=== PATIENT | female | born 1955 | race Caucasian/White ===

== ENCOUNTER → 2017-06-20 | Outpatient (CLI) | payer MEDICARE, OTHER ==
--- NOTE | 2017-06-22 09:48 | MM ---
Reason for exam: screening (asymptomatic). Last mammogram was performed 1 year and 3 months ago. Physical Findings: A clinical breast exam by your physician is recommended on an annual basis and results should be correlated with mammographic findings. MG 3D Screening Mammo W/Cad Bilateral CC and MLO view(s) were taken. Prior study comparison: March 10, 2016, bilateral MG 3d screening mammo w/cad. November 12, 2010, bilateral digital screening mammo w/CAD. There are scattered fibroglandular densities. Scattered calcifications are unchanged. No significant changes when compared with prior studies. ASSESSMENT: Negative, BI-RAD 1 RECOMMENDATION: Routine screening mammogram of both breasts in 1 year.
== END | disposition home or self-care (01) ==
LOC: RADMAMWWP 08:37
PROVIDERS: ATTEND Family Medicine
DX: Z12.31 Encounter for screening mammogram for malignant neoplasm of breast (principal)
CPT/HCPCS: 77063; G0202

== ENCOUNTER → 2018-07-31 | Outpatient (CLI) | payer MEDICARE, OTHER ==
--- NOTE | 2018-08-01 11:17 | MM ---
Reason for exam: screening (asymptomatic). Last mammogram was performed 1 year and 1 month ago. Physical Findings: A clinical breast exam by your physician is recommended on an annual basis and results should be correlated with mammographic findings. MG 3D Screening Mammo W/Cad Bilateral CC and MLO view(s) were taken. Prior study comparison: June 20, 2017, bilateral MG 3d screening mammo w/cad. March 10, 2016, bilateral MG 3d screening mammo w/cad. There are scattered fibroglandular densities. Benign appearing bilateral calcifications similar to priors. No suspicious abnormality. No significant changes when compared with prior studies. ASSESSMENT: Benign, BI-RAD 2 RECOMMENDATION: Routine screening mammogram of both breasts in 1 year.
== END | disposition home or self-care (01) ==
LOC: RADMAMWWP 08:39
PROVIDERS: ATTEND Family Medicine
DX: Z12.31 Encounter for screening mammogram for malignant neoplasm of breast (principal)
CPT/HCPCS: 77063; 77067

== ENCOUNTER 2018-10-22 08:04 | Emergency (ER) | payer MEDICARE ==
[2018-10-22 08:09] VITALS: TEMP 98.4
[2018-10-22] MEDS ORDERED: MORPHINE SULFATE 4 MG/ML SYRINGE IM STA (08:12)
--- NOTE | 2018-10-22 08:17 | ED ---
Upper Extremity HPI - General Source: patient, RN notes reviewed Mode of arrival: ambulatory Limitations: no limitations <Damien Jovel - Last Filed: 10/22/18 10:25> <Reji Booker - Last Filed: 10/22/18 10:37> - General Chief Complaint: Extremity Injury, Upper Stated Complaint: fall/wrist pain Time Seen by Provider: 10/22/18 08:09 - History of Present Illness Initial Comments: 63-year-old female presents emergency Department with chief complaint of trip and fall. Patient states she missed the last step. Patient states she fell forward striking her wrist. No head injury no loss conscious. Patient complains of moderate to severe discomfort to the right wrist. Patient is right-hand dominant. Patient offers no other complaints. (Damien Jovel) - Related Data Home Medications Medication Instructions Recorded Confirmed Atorvastatin [Lipitor] 80 mg PO HS 09/26/15 04/24/18 metFORMIN HCL 1,000 mg PO BID 09/26/15 04/24/18 Cholecalciferol (Vitamin D3) 2,000 unit PO BID 04/24/18 04/24/18 [Vitamin D3] HYDROcodone/APAP 5-325MG [Comfort 1 tab PO Q6HR 04/24/18 04/24/18 5-325] Insuln Asp Prt/Insulin Aspart 20 units SQ HS 04/24/18 04/24/18 [NovoLOG MIX 70-30 VIAL] Insuln Asp Prt/Insulin Aspart 46 unit SQ QAM 04/24/18 04/24/18 [NovoLOG MIX 70-30 VIAL] Losartan Potassium 100 mg PO DAILY 04/24/18 04/24/18 Omeprazole 20 mg PO DAILY 04/24/18 04/24/18 Pregabalin [Lyrica] 225 mg PO BID 04/24/18 04/24/18 Terbinafine [LamISIL] 250 mg PO DAILY 04/24/18 04/24/18 amLODIPine [Norvasc] 10 mg PO DAILY 04/24/18 04/24/18 Previous Rx's Medication Instructions Recorded Pregabalin [Lyrica] 225 mg PO BID 3 Days #6 cap 04/24/18 Allergies Allergy/AdvReac Type Severity Reaction Status Date / Time No Known Allergies Allergy Verified 10/22/18 08:09 Review of Systems ROS Other: All systems not noted in ROS Statement are negative. <Damien Jovel - Last Filed: 10/22/18 10:25> ROS Other: All systems not noted in ROS Statement are negative. <Reji Booker - Last Filed: 10/22/18 10:37> ROS Statement: Those systems with pertinent positive or pertinent negative responses have been documented in the HPI. Past Medical History Past Medical History: Heart Failure, Diabetes Mellitus, GERD/Reflux, H yperlipidemia, Hypertension Additional Past Medical History / Comment(s): neuropathy, CARPAL TUNNEL SNDROME, CHRONIC BACK PAIN, PAST FX LT LEG History of Any Multi-Drug Resistant Organisms: None Reported Past Surgical History: Ear Surgery, Hysterectomy, Orthopedic Surgery Additional Past Surgical History / Comment(s): gera knee replacement,lt femur- PLATE/SCREWS, trigger finger, 7 LT EAR SX, GASTRIC SLEEVE 05-04-13 STATED HAS LOWT 80 POUNDS Past Anesthesia/Blood Transfusion Reactions: No Reported Reaction Past Psychological History: No Psychological Hx Reported Smoking Status: Former smoker Past Alcohol Use History: Rare Past Drug Use History: None Reported - Past Family History Father Family Medical History: Cancer, Coronary Artery Disease (CAD), Diabetes Mellitus Additional Family Medical History / Comment(s): KIDNEY/LUNG CANCER Mother Family Medical History: Cancer, CVA/TIA, Diabetes Mellitus, Hypertension Additional Family Medical History / Comment(s): COLON, BRAIN SX <Damien Jovel - Last Filed: 10/22/18 10:25> General Exam Limitations: no limitations General appearance: alert, in no apparent distress Head exam: Present: atraumatic, normocephalic, normal inspection Respiratory exam: Present: normal lung sounds bilaterally. Absent: respiratory distress, wheezes, rales, rhonchi, stridor Cardiovascular Exam: Present: regular rate, normal rhythm, normal heart sounds. Absent: systolic murmur, diastolic murmur, rubs, gallop, clicks Extremities exam: Present: other (Right wrist there is slight deformity, moderate swelling no ecchymosis neurovascular intact there is tenderness at the right wrist no hand tenderness, no proximal right arm tenderness) Skin exam: Present: warm, dry, intact, normal color. Absent: rash <Damien Jovel - Last Filed: 10/22/18 10:25> Course <Reji Booker - Last Filed: 10/22/18 10:37> Vital Signs 10/22/18 10/22/18 10/22/18 08:07 09:29 09:30 Temperature 98.4 F Pulse Rate 83 85 73 Respiratory 18 17 13 Rate Blood Pressure 157/79 194/88 194/88 O2 Sat by Pulse 98 100 100 Oximetry 10/22/18 10/22/18 10/22/18 09:35 09:36 09:40 Temperature Pulse Rate 76 89 80 Respiratory 14 18 17 Rate Blood Pressure 195/89 187/97 187/97 O2 Sat by Pulse 100 100 100 Oximetry 10/22/18 10/22/18 10/22/18 09:45 09:50 09:55 Temperature Pulse Rate 76 78 72 Respiratory 22 17 17 Rate Blood Pressure 177/100 198/98 186/84 O2 Sat by Pulse 99 100 100 Oximetry 10/22/18 10/22/18 10:00 10:05 Temperature Pulse Rate 71 74 Respiratory 20 20 Rate Blood Pressure 187/98 182/99 O2 Sat by Pulse 100 95 Oximetry - Reevaluation(s) Reevaluation #1: 10/22/18 10:36 PA supervision: I proceeded [id number] evaluation the patient she had fallen and sustained a comminuted distal radius fracture as well as ulnar styloid fracture of the right upper extremity. Patient did require IV sedation and manipulation to reduce the fracture into a more acceptable alignment. This was accomplished with Damien myself. A short arm os OCL was placed. I did discuss the case with Dr. Mcgarry prior to the procedure. The patient did tolerate this well. She will be discharged and follow-up outpatient [facility]. (Reji Booker) Procedures - Orthopedic Splinting/Casting Injury #1 Side: right Upper Extremity Injury Location: short arm, wrist Upper Extremity Immobilizer: sugar tong splint, synthetic pre-padded splint (4x30) <Damien Jovel - Last Filed: 10/22/18 10:25> - Procedural Sedation Procedural Sedation Start Time: 09:36 Procedural Sedation Stop Time: 10:09 Indications: fracture/dislocation reduction ASA Class: II Mallampati Airway Score: 2 Preparation: monitor tech applied, pulse oximeter, capnometry used, supplemental O2 applied, reversal agents at bedside, suction/airway equipment at bedside, IV secured IV Propofol Dose (mgs): 135 Complications: none Patient Tolerated Procedure: well <Reji Booker - Last Filed: 10/22/18 10:37> - Orthopedic Splinting/Casting Injury #1 Additional Comments: Neurovascular intact before and after procedure (Damien Jovel) - Procedural Sedation Other Medications Used: IV morphine as well as IV Ativan patient did require initially 90 mg of propofol and additional 45 mg shortly thereafter. (Reji Booker) Medical Decision Making <Damien Jovel - Last Filed: 10/22/18 10:25> - Medical Decision Making 63-year-old female presented emergency from for slip and fall, right wrist injury. This was reduced in emergency department with Dr. Booker. Patient tolerate well patient was splinted and will follow-up with Dr. Mirza (Damien Jovel) Disposition Is patient prescribed a controlled substance at d/c from ED?: No Time of Disposition: 10:12 <Damien Jovel - Last Filed: 10/22/18 10:25> <Reji Booker - Last Filed: 10/22/18 10:37> Clinical Impression: Right arm fracture Disposition: HOME SELF-CARE Condition: Stable Instructions (If sedation given, give patient instructions): Arm Fracture in Adults (ED), Moderate Sedation (ED) Additional Instructions: Please return to the Emergency Department if symptoms worsen or any other concerns. Referrals: Darion Vega MD [Primary Care Provider] - 1-2 days Ant Mirza DO [Medical Doctor] - 1-2 days
--- NOTE | 2018-10-22 08:28 | XR ---
Right wrist HISTORY: Pain 4 views of the right wrist There is a comminuted intra-articular fracture of the distal radius with dorsal displacement, bayonet apposition. Ulnar styloid fracture is minimally displaced. No evident dislocation. IMPRESSION: Wrist fractures
[2018-10-22] MEDS ORDERED: SODIUM CHLORIDE 0.9% 500 ML 500 ML IV STA (08:54)
[2018-10-22] MEDS ORDERED: PROPOFOL 10 MG/ML 20 ML VIAL IV STA (08:54)
[2018-10-22] MEDS ORDERED: LORazepam 2 MG/ML INJ IV STA (08:58)
[2018-10-22] MEDS ORDERED: PROPOFOL 10 MG/ML 20 ML VIAL IV ONE (10:00)
[2018-10-22 10:02] VITALS: RESP 20
[2018-10-22] MEDS ORDERED: ACET/COD 300 MG/30 MG STARTER PACK 6 TAB BTL PO STA (10:13)
--- NOTE | 2018-10-22 10:19 | XR ---
Limited right wrist HISTORY: Post reduction 2 views of the right breast correlated to prior exam and same dated earlier time Interval reduction of patient's distal radial fracture is noted. There is overlying splint. IMPRESSION: Interval reduction
[2018-10-22 10:30] VITALS: BP 182/99; PULSE 74
== END 2018-10-22 11:00 | disposition home or self-care (01) ==
LOC: EC 08:04
DX: S52.571A Other intraarticular fracture of lower end of right radius, initial encounter for closed fracture (principal); S52.611A Displaced fracture of right ulna styloid process, initial encounter for closed fracture; E11.40 Type 2 diabetes mellitus with diabetic neuropathy, unspecified; E78.5 Hyperlipidemia, unspecified; K21.9 Gastro-esophageal reflux disease without esophagitis; I11.0 Hypertensive heart disease with heart failure; I50.9 Heart failure, unspecified; Z79.4 Long term (current) use of insulin; Z79.899 Other long term (current) drug therapy; Z87.891 Personal history of nicotine dependence; Z96.653 Presence of artificial knee joint, bilateral; W01.198A Fall on same level from slipping, tripping and stumbling with subsequent striking against other object, initial encounter; Y92.009 Unspecified place in unspecified non-institutional (private) residence as the place of occurrence of the external cause
CPT/HCPCS: 99283; 25605; 99152; 99153; 96374; 96361; 96372; 73100; 73110; J2060; J2270; J2704

== ENCOUNTER → 2020-04-11 | Day surgery (SDC) | payer MEDICARE, OTHER ==
[~2020-04-11] MED LIST: HYDROcodone/APAP 5-325MG 1 EACH TAB PO PRN; PREMYELOGRAM MEDICATION REVIEW 1 EACH MISC PO ONE; diazePAM 5 MG TAB PO STA
[2020-04-11 09:41] VITALS: TEMP 98.5
--- NOTE | 2020-04-11 13:32 | CT ---
EXAMINATION TYPE: CT lumbar spine w con DATE OF EXAM: 04/11/2020 COMPARISON: Lumbar myelogram HISTORY: Spinal stenosis CT DLP: 1016 mGycm CONTRAST: CT scan of the lumbar is performed intrathecal contrast, patient injected with 12 mL of Is ovue M200. TECHNIQUE: CT of the lumbar spine is performed on a spiral scan at 3 mm thick sections. Reconstructed images are performed in the coronal and sagittal planes. FINDINGS: T12-L1: No focal disc herniation or significant disc bulge is evident. No spinal canal stenosis or neural foraminal stenosis is present. L1-L2: No focal disc herniation or significant disc bulge is evident. No spinal canal stenosis or n eural foraminal stenosis is present L2-L3: No focal disc herniation or significant disc bulge is evident. No spinal canal stenosis or n eural foraminal stenosis is present L3-L4: No focal disc herniation or significant disc bulge is evident. No spinal canal stenosis or n eural foraminal stenosis is present L4-L5: Broad-based disc bulge has moderate anterior thecal sac flattening. Marked Facet hypertrophy a nd mild ligamentum flavum laxity is posterior lateral thecal sac compression. Spinal canal stenosis t hrough this level is evident with an AP diameter of 0.9 cm. There is moderate left and right foramina l stenosis. L5-S1: No focal disc herniation or significant disc bulge is evident. No spinal canal stenosis or n eural foraminal stenosis is present Vertebral alignment appears normal. IMPRESSION: Spinal canal stenosis L4-5 secondary to disc bulging and ligamentum flavum laxity. Moderate bilateral foraminal stenosis is present from disc bulging
[2020-04-11 13:45] VITALS: BP 136/64; PULSE 72; RESP 18
--- NOTE | 2020-04-13 15:32 | FL ---
Lumbar puncture and Myelogram. INDICATION: Pain FINDINGS: Fluoroscopy time: 48 seconds. Images obtained: 7. The procedure was explained to the patient. Risks complications and benefits were discussed. Alternat rena were discussed. All questions were answered. Informed consent was obtained. A timeout was performed. The L3-L4 level was chosen for access. Maximum barrier sterile technique was utilized. The skin was c leansed with Betadine and the patient sterilely prepped and draped in the usual manner. The skin and deeper tissue was anesthetized with 1% Lidocaine. Utilizing a 22-gauge spinal needle the spinal canal was accessed. Good CSF return was evident. Isovue M200 was utilized, 12 milliliters was administere d under fluoroscopic observation. The stylette was replaced and the needle withdrawn. Fluoroscopic spot images were obtained. The patient tolerated the procedure very well. Discharge instructions were discussed with the savana belle. The patient was transferred to CT for additional evaluation. Findings: Limited views of the lumbar spinal canal with contrast were obtained. There is extra-axial impression on the L4-5 disc level. IMPRESSIONS: 1. Successful Lumbar Puncture. 2. Extra-axial compression on the anterior thecal sac at L4-5.
== END ==
LOC: RADPROMAIN 07:42
PROVIDERS: ATTEND Family Medicine
DX: M48.061 Spinal stenosis, lumbar region without neurogenic claudication (principal); M51.26 Other intervertebral disc displacement, lumbar region; M24.28 Disorder of ligament, vertebrae; I10 Essential (primary) hypertension; K21.9 Gastro-esophageal reflux disease without esophagitis; E11.49 Type 2 diabetes mellitus with other diabetic neurological complication; E87.6 Hypokalemia; Z87.891 Personal history of nicotine dependence; Z90.710 Acquired absence of both cervix and uterus; Z96.653 Presence of artificial knee joint, bilateral; Z98.84 Bariatric surgery status; Z98.890 Other specified postprocedural states; Z82.49 Family history of ischemic heart disease and other diseases of the circulatory system; Z83.438 Family history of other disorder of lipoprotein metabolism and other lipidemia; Z80.9 Family history of malignant neoplasm, unspecified; Z83.3 Family history of diabetes mellitus; Z79.52 Long term (current) use of systemic steroids; Z79.4 Long term (current) use of insulin; Z79.899 Other long term (current) drug therapy
CPT/HCPCS: 62304; 72132; Q9966

== ENCOUNTER 2020-06-03 08:01 | Day surgery (SDC) | payer MEDICARE, OTHER ==
[2020-05-30 13:31] VITALS: BMI 39.4
[~2020-06-03 08:01] MED LIST changes: -HYDROcodone/APAP 5-325MG 1 EACH TAB PO PRN; +LACTATED RINGERS 1,000 ML IV SCH; -PREMYELOGRAM MEDICATION REVIEW 1 EACH MISC PO ONE; -diazePAM 5 MG TAB PO STA
[2020-06-03 08:16] VITALS: TEMP 98
[2020-06-03 08:33] LABS: Glucose,Whole Blood 158 mg/dL (75-99)
[2020-06-03] MEDS ORDERED: LACTATED RINGERS 1,000 ML IV ONE (08:35)
[2020-06-03] MEDS ORDERED: methylPREDNISolone ACETATE 40 MG/ML 1 ML VIAL ONE (08:48)
[2020-06-03] MEDS ORDERED: MIDAZOLAM 2 MG/2 ML VIAL ONE (08:48)
[2020-06-03] MEDS ORDERED: fentaNYL (PF) 50 MCG/ML 2 ML AMP ONE (08:48)
--- NOTE | 2020-06-03 09:01 | P.PCN ---
Date of Procedure: 06/03/20 Procedure(s) Performed: PREOPERATIVE DIAGNOSIS: 1- Lumbar Degenerative Disc Diseases 2-Lumbar spondylosis with Facet arthropathy without myelopathy 3-lumbar spinal stenosis POSTOPERATIVE DIAGNOSIS: 1-Lumber Degenerative Disc Diseases 2-Lumbar spondylosis with Facet arthropathy without myelopathy. 3-lumbar spinal stenosis PROCEDURE 1. Lumbar epidural steroid injection under fluoroscopic guidance at the L4-5 level. (Fluoroscopy imaging was available in radiology department). ANESTHESIA: Local with 1% lidocaine 3 ml and , moderate sedation with intravenous Versed 2 mg ,and fentanyle 50 Mcg EBL: Minimal PROCEDURE INDICATION: The patient with low back pain and radiculitis symptoms unresponsive to conservative treatment. Fluoroscopy was used to optimize visualization of the needle placement and to maximize safety. PROCEDURE DESCRIPTION / TECHNIQUE: The patient was seen and identified in the preoperative area. Risks, benefits, complications including but not limited to infections ,bleeding ,allergic reaction to the medications ,nerve damage and not complete pain releife , and alternatives were discussed with the patient. The patient agreed to proceed with the procedure and signed the consent. IV was started, and vital signs were stable. Patient was taken to the OR and time out was completed. The patient was placed in the prone position on procedure table and a pillow was placed under the abdomen to reduce lumbar lordosis. The lumbosacral area was prepped and draped in the usual sterile fashion.ere closely monitored during the procedure. Conscious sedation was used during the procedure to decrease patients anxiety. Vital signs was monitered during the entire procedure. Using anterior-posterior fluoroscopy, the L4-5 interlaminar space was identified and the skin over this site was marked and then infiltrated with 1% lidocaine subcutaneously. Subsequently, a 20-gauge Tuohy epidural needle was inserted and advanced toward the epidural space using the ``Loss of resistance technique and guided by AP and lateral fluoroscopy. Omnipaque was not injected because patient had ALLERGY to IVP dye, after negative aspiration for blood and CSF and in the absence of paresthesias. Again after negative aspiration, a 6 ml mixture containing 40 mg of Depo-medrol , and 2 ml of preservative free Normal Saline, and 2 ml of preservative free lidocaine 1% solutions . Needle was withdrawn intact, skin was cleansed, and bandages were applied. COMPLICATIONS: None DISPOSITION / PLANS: The patient was placed in a supine position and transferred to the recovery area in a stable condition for observation. There was no evidence of lower extremity motor or sensory deficit after the procedure. Patient was discharged from the recovery room after meeting discharge criteria. Home discharge instructions were given to the patient by the staff. The patient was reexamined prior to discharge. The patient will schedule a follow up in the clinic in 2-4 weeks.
[2020-06-03] MEDS ORDERED: IV FLUID CONTINUATION 800 ML IV ONE (09:03)
[2020-06-03 09:13] VITALS: RESP 20
[2020-06-03 09:22] VITALS: BP 146/81; PULSE 63
--- NOTE | 2020-06-03 09:50 | FL ---
EXAMINATION TYPE: FL guided pain mgmt statistic DATE OF EXAM: 06/03/2020 FLUOROSCOPY Fluoroscopy time of 2 seconds was used during lumbar epidural steroid injection. 1 image/s document/ s the procedure.
== END 2020-06-03 09:33 | disposition home or self-care (01) ==
LOC: ORPAIN 08:01
PROVIDERS: ATTEND Specialist
DX: M47.26 Other spondylosis with radiculopathy, lumbar region (principal); M51.16 Intervertebral disc disorders with radiculopathy, lumbar region; M48.061 Spinal stenosis, lumbar region without neurogenic claudication; E11.9 Type 2 diabetes mellitus without complications; Z91.041 Radiographic dye allergy status; Z90.711 Acquired absence of uterus with remaining cervical stump; Z79.82 Long term (current) use of aspirin
CPT/HCPCS: 62323; J2250; J1030; J3010

== ENCOUNTER 2020-07-01 08:01 | Day surgery (SDC) | payer MEDICARE, OTHER ==
[2020-07-01 08:35] LABS: Glucose,Whole Blood 188 mg/dL (75-99)
[2020-07-01 08:36] VITALS: RESP 16; TEMP 98
[2020-07-01] MEDS ORDERED: TRIAMCINOLONE ACETONIDE 40 MG/ML 1 ML VIAL ONE (08:42)
[2020-07-01] MEDS ORDERED: SODIUM CHLORIDE 0.9% (PF) 10 ML VIAL ONE (08:42)
[2020-07-01] MEDS ORDERED: LIDOCAINE 1% INJ 10MG/ML (20 ML MDV) ONE (08:42)
--- NOTE | 2020-07-01 08:53 | P.PCN ---
Date of Procedure: 07/01/20 Description of Procedure: REOPERATIVE DIAGNOSIS: 1- Lumbar Degenerative Disc Diseases 2-Lumbar spondylosis with Facet arthropathy without myelopathy 3-lumbar spinal stenosis POSTOPERATIVE DIAGNOSIS: 1-Lumber Degenerative Disc Diseases 2-Lumbar spondylosis with Facet arthropathy without myelopathy. 3-lumbar spinal stenosis PROCEDURE 1. Lumbar epidural steroid injection under fluoroscopic guidance at the L4-5 level with right paramedian approach (Fluoroscopy imaging was available in radiology department). ANESTHESIA: Local with 1% lidocaine 3 ml EBL: Minimal PROCEDURE INDICATION: The patient with low back pain and radiculitis symptoms unresponsive to conservative treatment. Fluoroscopy was used to optimize visualization of the needle placement and to maximize safety. PROCEDURE DESCRIPTION / TECHNIQUE: The patient was seen and identified in the preoperative area. Risks, benefits, complications including but not limited to infections ,bleeding ,allergic reaction to the medications ,nerve damage and not complete pain releife , and alternatives were discussed with the patient. The patient agreed to proceed with the procedure and signed the consent. IV was started, and vital signs were stable. Patient was taken to the OR and time out was completed. The patient was placed in the prone position on procedure table and a pillow was placed under the abdomen to reduce lumbar lordosis. The lumbosacral area was prepped and draped in the usual sterile fashion.ere closely monitored during the procedure. Conscious sedation was used during the procedure to decrease patients anxiety. Vital signs was monitered during the entire procedure. Using anterior-posterior fluoroscopy, the L4-5 interlaminar space was identified and the skin over this site was marked and then infiltrated with 1% lidocaine subcutaneously. Subsequently, a 20-gauge Tuohy epidural needle was inserted and advanced toward the epidural space using the ``Loss of resistance technique and guided by AP and lateral fluoroscopy. Omnipaque was not injected because patient had ALLERGY to IVP dye, after negative aspiration for blood and CSF and in the absence of paresthesias. Again after negative aspiration, a 6 ml mixture containing 40 mg of Kenalog , and 2 ml of preservative free Normal Saline, and 2 ml of preservative free lidocaine 1% solutions . Needle was withdrawn intact, skin was cleansed, and bandages were applied. COMPLICATIONS: None DISPOSITION / PLANS: The patient was placed in a supine position and transferred to the recovery area in a stable condition for observation. There was no evidence of lower extremity motor or sensory deficit after the procedure. Patient was discharged from the recovery room after meeting discharge criteria. Home discharge instructions were given to the patient by the staff. The patient was reexamined prior to discharge. The patient will schedule a clinic visit
[2020-07-01 09:05] VITALS: BP 161/81; PULSE 64
--- NOTE | 2020-07-01 11:43 | FL ---
Fluoroscopy INDICATION: Pain FINDINGS: Fluoroscopy time: 5 seconds. Images obtained: 2. IMPRESSIONS: 1. Documentation of fluoroscopy.
--- NOTE | 2020-07-03 05:57 | CDI ---
Outpatient Documentation Clarification Form Date: 07/03/20 CDS/Bolt Loader Name: Meredith Márquez Phone: If any questions, call Nereida Elizabeth Metal Neutralizer at [phone] Patient Name: Mercedes Florez Admit Date: 07/01/20 Discharge Date: 07/01/20 ATTENTION: The [facility] Coding Staff appreciate your assistance in clarifying documentation. Please respond to the clarification below the line at the bottom and electronically sign. The [facility] Coding staff will review the response and follow-up if needed. Please note: Queries are made part of the Legal Health Record. If you have any questions, please contact the Metal Neutralizer. Dear Dr. Cooper, Please provide clarification as to the type of anesthesia used. The procedure note under anesthesia documents Local with 1% lidocaine 3 ml. Also on the procedure note under Procedure Description/Technique in the second paragraph it is documented that conscious sedation was used during the procedure. Please clarify by choosing one of the following: Moderate/conscious sedation MAC/unconscious sedation Local anesthetic Thank you for your kind consideration. It was just local MTDD
== END 2020-07-01 09:19 | disposition home or self-care (01) ==
LOC: ORPAIN 08:01
PROVIDERS: ATTEND Anesthesiology
DX: M47.26 Other spondylosis with radiculopathy, lumbar region (principal); M51.16 Intervertebral disc disorders with radiculopathy, lumbar region; M48.061 Spinal stenosis, lumbar region without neurogenic claudication; Z91.041 Radiographic dye allergy status; E11.9 Type 2 diabetes mellitus without complications
CPT/HCPCS: 62323; J3301

== ENCOUNTER → 2020-08-27 | Outpatient (CLI) | payer MEDICARE, OTHER ==
[2020-08-27 10:09] VITALS: BP 185/81; PULSE 83; RESP 18; TEMP 98
--- NOTE | 2020-08-27 10:40 | P.PN ---
Subjective Progress Note Date: 08/27/20 This is a follow-up visit for this 65 years old female with a chronic history of severe low back pain, she is diagnosed with lumbar degenerative disc disease and lumbar spondylosis with lumbar facet arthropathy, and lumbar foraminal stenosis, previously we have done lumbar epidural steroid injections 2, she reported that she had some improvement in her low back pain but she is currently complaining of severe low back pain mainly in the right side low back area with radiation to the right buttock, intensity of the pain increases with any activity, she denies any motor or sensory deficit she denies any fever or night sweats. No change in the bowel movement or urination Objective - Vital Signs Vital signs: Vital Signs Temp 98.0 F 08/27/20 10:02 Pulse 83 08/27/20 10:02 Resp 18 08/27/20 10:02 BP 185/81 08/27/20 10:02 Pulse Ox 96 08/27/20 10:02 - Exam Physical Examinations : -Constitutiona : Cooperative , not in acute distress . -HEENT : nech : supple , no Lymphadenopathy , normal thyroid size . : eyes : no ptosis , no icterus, no photophobia . - neurologic : Cranial nerve II to XII intact , no focal neurological deffecit . -psychatric : alert , oriented X 3 , appropriate affect , intact judgment and insight . -Lymphatic : no Lymphadenopathy . - musculoskeltal : . Lumber spine moter stegnth lower extremities ,thigh and legs 5/5 Right side , 5/5 Left side deep tendon reflexes : normal Knee Jerk , normal ankle Jerk lumber facet Loading Test =positive Right , posiutive Left Range of motion of the lumbar spine Flexion 30 degrees, extension 10 degrees strait leg raising test = negative bilaterally Fabere test= positive Right , and positive LT . Sever tenderness over the Sacroiliac joint on the Right . Gaenslen test= positive right. Seated flexion test= positive right . MRI of the lumbar spine= lumbar degenerative disc disease lumbar facet arthropathy and lumbar foraminal stenosis L4 5 level Assessment and Plan Plan: Assessment and plan=1-lumbar degenerative disc disease. 2-lumbar spondylosis with lumbar facet arthropathy. 3-lumbar foraminal stenosis. 4-right sacroiliitis. she could benefit from right-sided sacroiliac joint steroid injections under fluoroscopy guidance. - PQRS measures = - Patient's medications are documented in the chart. -Tobacco use is negative and counseling.Given. -Patient's has not received pneumococcal vaccine. -Advanced care planning discussed, patient not eligible. -Opiate contract signed. -Pain positive and follow-up visit/procedure is scheduled. -Patient's blood pressure measured [185/81 ] , and documented in the record ,and patient will follow up with the primary care. -Patient's weight was measured and body mass index [ 39 ] above the normal limits and counseling was done. and patient instructed to follow-up with the primary care physician. -Patient was not identified as an unhealthy alcohol user Time with Patient: Less than 30
== END | disposition home or self-care (01) ==
LOC: PNWHC3 09:41
PROVIDERS: ATTEND Specialist
DX: M48.061 Spinal stenosis, lumbar region without neurogenic claudication (principal); M51.36 Other intervertebral disc degeneration, lumbar region; M47.816 Spondylosis without myelopathy or radiculopathy, lumbar region; M46.1 Sacroiliitis, not elsewhere classified
CPT/HCPCS: 99211

== ENCOUNTER → 2020-09-12 | Day surgery (SDC) | payer MEDICARE, OTHER ==
[2020-09-10 16:06] VITALS: BMI 39.4
[~2020-09-12] MED LIST changes: +ENALAPRILAT 1.25 MG/ML 1 ML VIAL ONE; +IV FLUID CONTINUATION 1,000 ML IV ONE; +MIDAZOLAM 2 MG/2 ML VIAL ONE; +ROPIVACAINE 5MG/ML 20ML VIAL ONE; +fentaNYL (PF) 50 MCG/ML 2 ML AMP ONE; +hydrALAZINE HCL 20 MG/ML 1 ML VIAL IV ONE; +methylPREDNISolone ACETATE 40 MG/ML 1 ML VIAL ONE
[2020-09-12 07:45] VITALS: RESP 16; TEMP 96.8
[2020-09-12 07:49] LABS: Glucose,Whole Blood 146 mg/dL (75-99)
--- NOTE | 2020-09-12 08:35 | P.PCN ---
Date of Procedure: 09/12/20 Procedure(s) Performed: Procedure= Right sacroiliac joints steroid injection under fluoroscopy guidance (fluoroscopy image stored on file in the radiology Department ) Preoperative diagnosis= 1-Right sacroiliitis 2-lumbar degenerative disc disease 3-lumbar spondylosis with facet arthropathy Postoperative diagnosis=Same as preop Diagnosis . Complication = none Condition= stable Anesthesia= moderate sedation with intravenous Versed 2 mg , and fentanyl 50 micrograms . Indication for the procedure= patient complaining of low back pain , examination was positive for severe tenderness over the sacroiliac joints bilaterally and patient diagnosed with sacroiliitis, for this reason ,she was good candidate for sacroiliac joint steroid injection. Description of the procedure= procedure risk and benefits discussed with the patient, including but not limited, risk of infection and bleeding, and ALLERGIC reaction to the medication and not complete pain relief and patient agreed with the preceding patient taken to the operating room, placed in prone position or standard monitors applied to the patient then after induction of anesthesia back prepped with chlorhexidine 3 times , Then under strict sterile technique, I did the right sacroiliac joint the which was identified under fluoroscopy guidance been local infiltration of the skin and subcu interstitial with lidocaine 1% then 22-gauge Quincke Needle advanced slowly under fluoroscopy and placed in the right sacroiliac joint needle placement confirmed with AP and oblique and lateral view and after appropriate needle placement confirmed and after negative aspiration, or heme , then Ropivacaine 0.5% 4 mL, and 40 mg of Depo-Medrol mixed together and injected in the right sacroiliac joint after negative aspiration patient tolerated the procedure well without any complication. patient tolerated the procedure well that any complications and she will follow up in clinic 3 weeks
--- NOTE | 2020-09-12 08:50 | FL ---
EXAMINATION TYPE: FL guided pain mgmt statistic DATE OF EXAM: 09/12/2020 HISTORY: Pain 4sec fluoro time, 1 image scanned
[2020-09-12 08:56] VITALS: BP 135/67; PULSE 68
== END ==
LOC: ORPAIN 07:27
PROVIDERS: ATTEND Anesthesiology
DX: M46.1 Sacroiliitis, not elsewhere classified (principal); M51.36 Other intervertebral disc degeneration, lumbar region; M47.816 Spondylosis without myelopathy or radiculopathy, lumbar region; I10 Essential (primary) hypertension; E11.9 Type 2 diabetes mellitus without complications; Z79.82 Long term (current) use of aspirin; Z91.041 Radiographic dye allergy status
CPT/HCPCS: J2250; J0360; J1030; J3010; J2795; G0260; 27096

== ENCOUNTER 2020-10-03 06:44 | Day surgery (SDC) | payer MEDICARE, OTHER ==
[2020-09-26 15:40] VITALS: BMI 39.4
[~2020-10-03 06:44] MED LIST changes: -ENALAPRILAT 1.25 MG/ML 1 ML VIAL ONE; -IV FLUID CONTINUATION 1,000 ML IV ONE; -MIDAZOLAM 2 MG/2 ML VIAL ONE; -ROPIVACAINE 5MG/ML 20ML VIAL ONE; -fentaNYL (PF) 50 MCG/ML 2 ML AMP ONE; -hydrALAZINE HCL 20 MG/ML 1 ML VIAL IV ONE; -methylPREDNISolone ACETATE 40 MG/ML 1 ML VIAL ONE
[2020-10-03] MEDS ORDERED: LIDOCAINE 1% (10MG/ML) FOR IV START INTRADERMA ONE (07:20)
[2020-10-03 07:43] LABS: Glucose,Whole Blood 134 mg/dL (75-99)
[2020-10-03 07:45] VITALS: TEMP 96.8
[2020-10-03] MEDS ORDERED: MIDAZOLAM 2 MG/2 ML VIAL ONE (07:52)
[2020-10-03] MEDS ORDERED: ROPIVACAINE 5MG/ML 20ML VIAL ONE (07:52)
[2020-10-03] MEDS ORDERED: fentaNYL (PF) 50 MCG/ML 2 ML AMP ONE (07:52)
[2020-10-03] MEDS ORDERED: TRIAMCINOLONE ACETONIDE 40 MG/ML 1 ML VIAL ONE (07:52)
--- NOTE | 2020-10-03 07:59 | P.PCN ---
Date of Procedure: 10/03/20 Description of Procedure: Procedure= Right sacroiliac joints steroid injection under fluoroscopy guidance (fluoroscopy image stored on file in the radiology Department ) Preoperative diagnosis= 1-Right sacroiliitis 2-lumbar degenerative disc disease 3-lumbar spondylosis with facet arthropathy Postoperative diagnosis=Same as preop Diagnosis . Complication = none Condition= stable Anesthesia= moderate sedation with intravenous Versed 2 mg , and fentanyl 50 micrograms . 4 min sedation time Indication for the procedure= patient complaining of low back pain , examination was positive for severe tenderness over the sacroiliac joints bilaterally and patient diagnosed with sacroiliitis, for this reason ,she was good candidate for sacroiliac joint steroid injection. Description of the procedure= procedure risk and benefits discussed with the patient, including but not limited, risk of infection and bleeding, and ALLERGIC reaction to the medication and not complete pain relief and patient agreed with the preceding patient taken to the operating room, placed in prone position or standard monitors applied to the patient then after induction of anesthesia back prepped with chlorhexidine 3 times , Then under strict sterile technique, I did the right sacroiliac joint the which was identified under fluoroscopy guidance been local infiltration of the skin and subcu interstitial with lidocaine 1% then 22-gauge Quincke Needle advanced slowly under fluoroscopy and placed in the right sacroiliac joint needle placement confirmed with AP and oblique and lateral view and after appropriate needle placement confirmed and after negative aspiration, or heme , then Ropivacaine 0.5% 2 mL, and 40 mg of Depo-Medrol mixed together and injected in the right sacroiliac joint after negative aspiration patient tolerated the procedure well without any complication. Contrast was not used as patient has allergy to IV contrast. patient tolerated the procedure well that any complications and she will follow up in clinic 2-4 weeks
[2020-10-03 08:06] VITALS: RESP 16
[2020-10-03 08:20] VITALS: BP 131/71; PULSE 53
[2020-10-03] MEDS ORDERED: IV FLUID CONTINUATION 1,000 ML IV ONE (08:22)
--- NOTE | 2020-10-03 14:26 | FL ---
Fluoroscopy INDICATION: Pain FINDINGS: Fluoroscopy time: 4 seconds. Images obtained: 1. IMPRESSIONS: 1. Documentation of fluoroscopy.
== END 2020-10-03 08:28 | disposition home or self-care (01) ==
LOC: ORPAIN 06:44
PROVIDERS: ATTEND Anesthesiology
DX: M46.1 Sacroiliitis, not elsewhere classified (principal); M47.816 Spondylosis without myelopathy or radiculopathy, lumbar region; M51.36 Other intervertebral disc degeneration, lumbar region; I11.0 Hypertensive heart disease with heart failure; I50.9 Heart failure, unspecified; E78.5 Hyperlipidemia, unspecified; E11.40 Type 2 diabetes mellitus with diabetic neuropathy, unspecified; H91.90 Unspecified hearing loss, unspecified ear; Z91.041 Radiographic dye allergy status; Z79.4 Long term (current) use of insulin; Z79.82 Long term (current) use of aspirin; Z79.1 Long term (current) use of non-steroidal anti-inflammatories (NSAID); Z79.899 Other long term (current) drug therapy; Z90.710 Acquired absence of both cervix and uterus
CPT/HCPCS: J2250; J3301; J3010; J2795; G0260; 27096

== ENCOUNTER → 2020-10-29 | Outpatient (CLI) | payer MEDICARE, OTHER ==
[2020-10-29 11:08] VITALS: BP 137/87; PULSE 73; RESP 16; TEMP 97.9
--- NOTE | 2020-10-29 11:19 | P.PN ---
Subjective Progress Note Date: 10/29/20 This is a follow-up visit for this 65 years old female with chronic history of severe low back pain, she is diagnosed with lumbar degenerative disc disease and lumbar spondylosis with lumbar facet arthropathy, and lumbar foraminal stenosis, and right sacroiliitis, recently we did a right sacroiliac joint injection, and previously we have done lumbar epidural steroid injection, she reported that her low back pain improved 100% after her injection,, she denies any motor or sensory deficit she denies any fever or night sweats. No change in the bowel movement or urination Objective - Vital Signs Vital signs: Vital Signs Temp 97.9 F 10/29/20 11:06 Pulse 73 10/29/20 11:06 Resp 16 10/29/20 11:06 BP 137/87 10/29/20 11:06 Pulse Ox 96 10/29/20 11:06 - Exam -Constitutiona : Cooperative , not in acute distress . -HEENT : nech : supple , no Lymphadenopathy , normal thyroid size . : eyes : no ptosis , no icterus, no photophobia . - neurologic : Cranial nerve II to XII intact , no focal neurological deffecit . -psychatric : alert , oriented X 3 , appropriate affect , intact judgment and insight . -Lymphatic : no Lymphadenopathy . - musculoskeltal : . Lumber spine moter stegnth lower extremities ,thigh and legs 5/5 Right side , 5/5 Left side . MRI of the lumbar spine= lumbar degenerative disc disease lumbar facet arthro veronica and lumbar foraminal stenosis L4 5 level Assessment and Plan Plan: Assessment and plan=1-lumbar degenerative disc disease. 2-lumbar spondylosis with lumbar facet arthropathy. 3-lumbar foraminal stenosis. 4-right sacroiliitis. Patient had 100% improvement after right sacroiliac joint steroid injection x2 - PQRS measures = - Patient's medications are documented in the chart. -Tobacco use is negative and counseling.Given. -Patient's has not received pneumococcal vaccine. -Advanced care planning discussed, patient not eligible. -Opiate contract not signed. -Pain positive and follow-up visit/procedure is scheduled. -Patient's blood pressure measured [137/87 ] , and documented in the record ,and patient will follow up with the primary care. -Patient's weight was measured and body mass index [ 39.5 ] above the normal limits and counseling was done. and patient instructed to follow-up with the primary care physician. -Patient was not identified as an unhealthy alcohol user Time with Patient: Less than 30
== END ==
LOC: PNWHC3 10:53
PROVIDERS: ATTEND Specialist
DX: M51.36 Other intervertebral disc degeneration, lumbar region (principal); M47.816 Spondylosis without myelopathy or radiculopathy, lumbar region; M48.061 Spinal stenosis, lumbar region without neurogenic claudication; M46.1 Sacroiliitis, not elsewhere classified
CPT/HCPCS: 99211

== ENCOUNTER → 2020-12-22 | Outpatient (CLI) | payer MEDICARE, OTHER ==
[2020-12-22 13:42] VITALS: BP 124/75; PULSE 81; RESP 16; TEMP 98
--- NOTE | 2020-12-22 13:54 | P.PN ---
Subjective Progress Note Date: 12/22/20 Mercedes is a 65-year-old female presents to the clinic today for follow-up secondary to her chronic low back pain. She reports she had an SI joint injection done about 3 months ago which offered her significant benefit. She felt greater than 6070% relief from the SI joint injection up until today. She recently was able to do more functionally, her pain was about 2 out of 10 most days. As of recently her pain is increased to 6 or 7 out of 10 secondary to that pain in the area. The pain stays in the low back which is exacerbated with bending and lifting or standing from a seated position. She does not have much pain at rest. She denies any shooting pain down her legs. Review of Systems: Denies any New chest pain, short of breath, Nausea/vomitting, abdominal pain, bowel or bladder incontinence, or any overt new neurologic symptoms in the upper or lower extremities outside of what is noted in the HPI Objective - Vital Signs Vital signs: Vital Signs Temp 98.0 F 12/22/20 13:40 Pulse 81 12/22/20 13:40 Resp 16 12/22/20 13:40 BP 124/75 12/22/20 13:40 Pulse Ox 93 L 12/22/20 13:40 - Exam General: Awake and alert oriented 3 no distress, obese Respiratory exam: No audible wheezing no accessory muscle usage Cardiovascular exam: regular rate, palpable bilateral pulses, no lower extremity edema Cervical spine: Normal alignment, Spurling's negative, facet loading negative, [employer] strength is 5/5, oh negative Lumbar spine: Loss of lumbar lordosis, normal alignment, tender to palpation over bilateral paraspinal muscles, facet loading is positive bilaterally. Straight leg raise is negative. Limited range of motion due to pain with flexion, extension and side bending. Sacroiliac joints: tender to palpation, WAYNE is positive, Gaenselon other on the right Neuro exam: Normal sensation in bilateral upper extremities, deep tendon reflexes are 2+ bilateral upper extremities. Normal sensation in bilateral lower extremities. Deep tendon reflexes are 2+ in lower extremities Psych exam: Cooperative, appropriate mood Assessment and Plan Assessment: #1 sacroiliitis #2 spondylosis of lumbar without myelopathy #3 obesity Plan: I discussed the injection with the patient. She's had the injection done about 3 months ago and wants to repeat it again. I discussed with the injection may offer temporary relief of her symptoms. We also discussed that she is diabetic and that using steroids can increase her blood sugars. She reports that she checks her sugars regularly and they did not elevate during or after the injection last time. She will keep a very close eye. We discussed that she should decrease her oral intake of carbohydrates and sugars after having steroid injection. She is okay with moving forward with the risks discussed with her today. We'll schedule her for right-sided SI joint injection under fluoroscopy I have spent 21 minutes on patient care today. The time was used to review the medical records including relevant urine studies and Prescription history (MAPs), review of the available imaging, evaluation and examination of the patient, coordination of care with the medical staff and if applicable referring physicians, as well as creation of the medical record.
== END ==
LOC: PNWHC3 13:31
PROVIDERS: ATTEND Hospitalist
DX: M47.816 Spondylosis without myelopathy or radiculopathy, lumbar region (principal); M46.1 Sacroiliitis, not elsewhere classified; G89.29 Other chronic pain; E66.9 Obesity, unspecified; Z68.41 Body mass index [BMI] 40.0-44.9, adult; Z87.891 Personal history of nicotine dependence
CPT/HCPCS: 99211

== ENCOUNTER 2021-01-06 07:57 | Day surgery (SDC) | payer MEDICARE, OTHER ==
[2021-01-02 09:34] VITALS: BMI 40.3
[2021-01-06 08:18] VITALS: TEMP 97.4
[2021-01-06] MEDS ORDERED: LIDOCAINE 1% (10MG/ML) FOR IV START INTRADERMA ONE (08:31)
[2021-01-06 08:34] LABS: Glucose,Whole Blood 188 mg/dL (75-99)
[2021-01-06] MEDS ORDERED: fentaNYL (PF) 50 MCG/ML 2 ML AMP ONE (08:45)
[2021-01-06] MEDS ORDERED: ROPIVACAINE 5MG/ML 20ML VIAL ONE (08:45)
[2021-01-06] MEDS ORDERED: methylPREDNISolone ACETATE 40 MG/ML 1 ML VIAL ONE (08:45)
[2021-01-06] MEDS ORDERED: MIDAZOLAM 2 MG/2 ML VIAL ONE (08:45)
--- NOTE | 2021-01-06 09:01 | P.PCN ---
Date of Procedure: 01/06/21 Procedure(s) Performed: Procedure(s) Performed: Procedure= Right sacroiliac joints steroid injection under fluoroscopy guidance (fluoroscopy image stored on file in the radiology Department ) Preoperative diagnosis= 1-Right sacroiliitis 2-lumbar degenerative disc disease 3-lumbar spondylosis with facet arthropathy Postoperative diagnosis=Same as preop Diagnosis . Complication = none Condition= stable Anesthesia= moderate sedation with intravenous Versed 2 mg , and fentanyl 50 micrograms . Indication for the procedure= patient complaining of low back pain , examination was positive for severe tenderness over the right sacroiliac joints and patient diagnosed with sacroiliitis, for this reason ,she was good candidate for sacroiliac joint steroid injection. Description of the procedure= procedure risk and benefits discussed with the patient, including but not limited, risk of infection and bleeding, and ALLERGIC reaction to the medication and not complete pain relief and patient agreed with the preceding patient taken to the operating room, placed in prone position or standard monitors applied to the patient then after induction of anesthesia back prepped with chlorhexidine 3 times , Then under strict sterile technique, I did the right sacroiliac joint the which was identified under fluoroscopy guidance been local infiltration of the skin and subcu interstitial with lidocaine 1% then 22-gauge 5 inches long Quincke Needle advanced slowly under fluoroscopy and placed in the right sacroiliac joint needle placement confirmed with AP and oblique and lateral view and after appropriate needle placement confirmed and after negative aspiration, or heme , then Ropivacaine 0.5% 4 mL, and 40 mg of Depo-Medrol mixed together and injected in the right sacroiliac joint after negative aspiration patient tolerated the procedure well without any complication. patient tolerated the procedure well that any complications and she will follow up in clinic 3 weeks
[2021-01-06] MEDS ORDERED: IV FLUID CONTINUATION 840 ML IV ONE (09:02)
[2021-01-06 09:08] VITALS: RESP 16
[2021-01-06 09:24] VITALS: BP 117/76; PULSE 64
--- NOTE | 2021-01-06 09:36 | FL ---
Fluoroscopy HISTORY: Pain 10 seconds fluoroscopy time supplied to the referring clinician. 1 intraoperative C-arm images docum ent the procedure. See dictated report from anesthesia.
== END 2021-01-06 09:35 | disposition home or self-care (01) ==
LOC: ORPAIN 07:57
PROVIDERS: ATTEND Specialist
DX: M46.1 Sacroiliitis, not elsewhere classified (principal); M47.816 Spondylosis without myelopathy or radiculopathy, lumbar region; M51.36 Other intervertebral disc degeneration, lumbar region; E11.9 Type 2 diabetes mellitus without complications
CPT/HCPCS: J2250; J1030; J3010; J2795; G0260; 27096; 99152

== ENCOUNTER → 2021-02-02 | Outpatient (CLI) | payer MEDICARE, OTHER ==
--- NOTE | 2021-02-02 10:44 | P.PN ---
Subjective Progress Note Date: 02/02/21 This is a follow-up visit for this 65 years old female with chronic history of severe low back pain, she is diagnosed with lumbar degenerative disc disease and lumbar spondylosis with lumbar facet arthropathy, and lumbar foraminal stenosis, and right sacroiliitis, recently we did a right sacroiliac joint injection, and previously we have done lumbar epidural steroid injection, she reported that her low back pain improved 100% after her injection,, she denies any motor or sensory deficit she denies any fever or night sweats. No change in the bowel movement or urination Physical Examinations : -Constitutiona : Cooperative , not in acute distress . -HEENT : nech : supple , no Lymphadenopathy , normal thyroid size . : eyes : no ptosis , no icterus, no photophobia . - neurologic : Cranial nerve II to XII intact , no focal neurological deffecit . -psychatric : alert , oriented X 3 , appropriate affect , intact judgment and insight . -Lymphatic : no Lymphadenopathy . - musculoskeltal : Lumber spine moter stegnth lower extremities ,thigh and legs 5/5 Right side , 5/5 Left side deep tendon reflexes : normal Knee Jerk , normal ankle Jerk lumber facet Loading Test =positive Right , positive Left Range of motion of the lumbar spine Flexion 30 degrees, extension 10 degrees strait leg raising test = negative bilaterally Fabere test= negative bilaterally. Sever tenderness over the Sacroiliac joint on the Right . Gaenslen test= positive right . Seated flexion test= positive right . Distraction test= positive right Assessment and plan=1-lumbar degenerative disc disease. 2-lumbar spondylosis with lumbar facet arthropathy. 3-lumbar foraminal stenosis. 4-right sacroiliitis. Patient had 100% improvement after right sacroiliac joint steroid injection x2 Patient she could benefit from RFA of the right sacroiliac joint (RFA L5-S1 dorsal ramus ,RFA Lateral branches S1,S2, S3 ) - PQRS measures = - Patient's medications are documented in the chart. -Tobacco use is negative and counseling.Given. -Patient's has not received pneumococcal vaccine. -Advanced care planning discussed, patient not eligible. -Opiate contract not signed. -Pain positive and follow-up visit/procedure is scheduled. -Patient's blood pressure measured [154/75 ] , and documented in the record ,and patient will follow up with the primary care. -Patient's weight was measured and body mass index [ 40 ] above the normal limits and counseling was done. and patient instructed to follow-up with the primary care physician. -Patient was not identified as an unhealthy alcohol user
[2021-02-02 10:48] VITALS: BP 154/75; PULSE 70; RESP 18; TEMP 98.1
== END ==
LOC: PNWHC3 09:32
PROVIDERS: ATTEND Specialist
DX: M51.36 Other intervertebral disc degeneration, lumbar region (principal); M47.816 Spondylosis without myelopathy or radiculopathy, lumbar region; M48.061 Spinal stenosis, lumbar region without neurogenic claudication; M46.1 Sacroiliitis, not elsewhere classified; Z91.041 Radiographic dye allergy status; Z87.891 Personal history of nicotine dependence
CPT/HCPCS: 99211

== ENCOUNTER 2021-02-17 06:57 | Day surgery (SDC) | payer MEDICARE, OTHER ==
[2021-02-13 09:34] VITALS: BMI 39.4
[2021-02-17 07:24] VITALS: TEMP 96.6
[2021-02-17] MEDS ORDERED: LIDOCAINE 1% (10MG/ML) FOR IV START INTRADERMA ONE (07:25)
[2021-02-17 07:27] LABS: Glucose,Whole Blood 179 mg/dL (75-99)
[2021-02-17] MEDS ORDERED: fentaNYL (PF) 50 MCG/ML 2 ML AMP ONE (07:51)
[2021-02-17] MEDS ORDERED: ROPIVACAINE 5MG/ML 20ML VIAL ONE (07:51)
[2021-02-17] MEDS ORDERED: methylPREDNISolone ACETATE 40 MG/ML 1 ML VIAL ONE (07:51)
[2021-02-17] MEDS ORDERED: MIDAZOLAM 2 MG/2 ML VIAL ONE (07:51)
--- NOTE | 2021-02-17 08:07 | P.PCN ---
Date of Procedure: 02/17/21 Procedure(s) Performed: Procedure(s) Performed: Procedure= Right sacroiliac joints steroid injection under fluoroscopy guidance (fluoroscopy image stored on file in the radiology Department ) Preoperative diagnosis= 1-Right sacroiliitis 2-lumbar degenerative disc disease 3-lumbar spondylosis with facet arthropathy Postoperative diagnosis=Same as preop Diagnosis . Complication = none Condition= stable Anesthesia= moderate sedation with intravenous Versed 2 mg , and fentanyl 50 micrograms . Indication for the procedure= patient complaining of low back pain , examination was positive for severe tenderness over the right sacroiliac joints and patient diagnosed with sacroiliitis, for this reason ,she was good candidate for sacroiliac joint steroid injection. Description of the procedure= procedure risk and benefits discussed with the patient, including but not limited, risk of infection and bleeding, and ALLERGIC reaction to the medication and not complete pain relief and patient agreed with the preceding patient taken to the operating room, placed in prone position or standard monitors applied to the patient then after induction of anesthesia back prepped with chlorhexidine 3 times , Then under strict sterile technique, I did the right sacroiliac joint the which was identified under fluoroscopy guidance been local infiltration of the skin and subcu interstitial with lidocaine 1% then 22-gauge 5 inches long Quincke Needle advanced slowly under fluoroscopy and placed in the right sacroiliac joint needle placement confirmed with AP and oblique and lateral view and after appropriate needle placement confirmed and after negative aspiration, or heme , then Ropivacaine 0.5% 4 mL, and 40 mg of Depo-Medrol mixed together and injected in the right sacroiliac joint after negative aspiration patient tolerated the procedure well without any complication. patient tolerated the procedure well that any complications and she will follow up in clinic 3 weeks
[2021-02-17] MEDS ORDERED: IV FLUID CONTINUATION 1,000 ML IV ONE ×2 (08:10)
--- NOTE | 2021-02-17 08:18 | FL ---
EXAMINATION TYPE: FL guided pain mgmt statistic DATE OF EXAM: 02/17/2021 CLINICAL HISTORY: Sacroiliac joint pain. TECHNIQUE: Fluoroscopy. COMPARISON: None. FINDINGS: Fluoroscopic guidance was provided during pain relief procedure performed by Dr. Novoa . A total of 10 seconds of fluoroscopic time was utilized during the procedure and 1 spot images are acquired. Single image acquired shows needle localization at inferior right sacroiliac joint britta Abarca IMPRESSION: As Above.
[2021-02-17 08:34] VITALS: BP 115/70; PULSE 65; RESP 16
== END 2021-02-17 08:40 | disposition home or self-care (01) ==
LOC: ORPAIN 06:57
PROVIDERS: ATTEND Specialist
DX: M46.1 Sacroiliitis, not elsewhere classified (principal); M51.36 Other intervertebral disc degeneration, lumbar region; M47.816 Spondylosis without myelopathy or radiculopathy, lumbar region
CPT/HCPCS: J2250; J1030; J3010; J2795; G0260; 27096; 99152

== ENCOUNTER → 2021-05-28 | Outpatient (CLI) | payer MEDICARE, OTHER ==
--- NOTE | 2021-05-28 08:37 | P.PN ---
Subjective Progress Note Date: 05/28/21 This is a 65-year-old morbidly obese lady with history of diabetes and peripheral neuropathy with numbness in both legs. She is here today for right hip pain which gets worse with any movement as she states. She had right sacroiliac joint steroid injection and lumbar epidural steroid injection previously which helped her lower back pain but today she is complaining only of right hip pain. Patient denies new-onset weakness, bowel/bladder incontinence, or any other signs or symptoms of cauda equina syndrome. There are no signs of acute intoxication, and no indications of medication diversion or overuse. In addition to above, 13-point review of systems is also negative for chest pain, shortness of breath, changes in vision, changes in hearing, new onset weakness, abdominal pain, diarrhea, extreme fatigue, malaise, fever, skin changes, homicidal or suicidal ideation, or bowel or bladder incontinence. Vital Signs: Reviewed in EMR Gen: AAOx3, NAD HEENT: PERRLA,hearing grossly normal Pulm: resp unlabored Neck: supple, trachea midline Neuro exam of the lower extremities: Normal muscle strength bilaterally Straight leg raising test: Negative bilaterally Wade's test: Range of motion of the lumbar spine: Facet loading test: Tenderness in the paravertebral musculature: Positive tenderness around the right greater trochanter Neuro: CN II-XII grossly intact, Imaging: Reviewed in EMR/chart Assessment: Right greater trochanter bursitis Lumbar spondylosis without myelopathy Lumbar stenosis Lumbar DDD Morbid obesity Diabetic peripheral neuropathy Plan: 1. Explanation: When patients on opioids, opioid and psychological risk scores were reviewed. Diagnoses, prognoses, and multiple treatment options including but not limited to physical therapy, interventional therapies, adjuvant medical therapies, narcotic medication therapies, and surgery were discussed with the patient and all questions were answered to the patient's satisfaction. 2. Opioid agreement:When patients are prescribed opoids through our clinic, opioid agreement is signed with the patient and the patient is warned not to use opioids while driving or before driving and not to combine opioids with benzodiazepines or alcohol. 3. Counseling: When patient is smoking or obese, the patient was counseled extensively on SMOKING CESSATION, BODY MASS INDEX, EXERCISE. Specifically, the patient was instructed regarding the importance of smoking cessation, obesity, and exercise in the context of both chronic pain and overall health. 4. Procedures: Scheduled for right greater trochanter bursa steroid injection. I recommend that we hold off on steroid injections for a while since she has been getting many of them lately. 5. Consultations: None 6. Investigations: None 7. Medications: Patient receives [place] from her primary care physician 8. Disposition: Return to clinic in 4 weeks and to the above-mentioned procedure as soon as possible 9. Maps were reviewed and were appropriate.
[2021-05-28 10:03] VITALS: BP 182/90; PULSE 69; RESP 18; TEMP 97.6
== END ==
LOC: PNWHC3 07:56
PROVIDERS: ATTEND Anesthesiology
DX: M47.816 Spondylosis without myelopathy or radiculopathy, lumbar region (principal); M48.061 Spinal stenosis, lumbar region without neurogenic claudication; M51.36 Other intervertebral disc degeneration, lumbar region; M70.61 Trochanteric bursitis, right hip; E66.01 Morbid (severe) obesity due to excess calories; E11.42 Type 2 diabetes mellitus with diabetic polyneuropathy; Z68.41 Body mass index [BMI] 40.0-44.9, adult; Z87.891 Personal history of nicotine dependence; Z91.041 Radiographic dye allergy status
CPT/HCPCS: 99211

== ENCOUNTER 2021-07-07 08:12 | Day surgery (SDC) | payer MEDICARE, OTHER ==
[2021-07-03 11:06] VITALS: BMI 41.5
[2021-07-07 08:40] VITALS: RESP 16; TEMP 97.2
[2021-07-07 08:46] LABS: Glucose,Whole Blood 167 mg/dL (75-99)
[2021-07-07] MEDS ORDERED: TRIAMCINOLONE ACETONIDE 40 MG/ML 1 ML VIAL ONE (08:47)
[2021-07-07] MEDS ORDERED: ROPIVACAINE 5MG/ML 20ML VIAL ONE (08:47)
--- NOTE | 2021-07-07 09:02 | P.PCN ---
Date of Procedure: 07/07/21 Surgeon: Maddison Monroe Pathology: none sent Condition: stable Disposition: PACU Description of Procedure: preoperative /postoperative diagnosis: Greater trochanter bursitis physician:Maddison Monroe MD anesthesia local only with lidocaine 1% name of procedure: Right greater trochanter bursa steroid injection under fluoroscopic guidance Description of procedure: The patient was seen in preop holding area consent was obtained then she was brought to the procedure room and placed in the supine position. Skin was prepped with ChloraPrep and draped in a sterile manner. Lidocaine 1% was used to numb the skin up. i then used 22-gauge 5 inch Quincke spinal needle to go through the skin and to contact the bone and the middle of the right greater trochanter using x-ray guidance. I then injected 20 mg of Kenalog with 3 mg of ropivacaine 0.5%. Patient tolerated procedure well. The final picture was saved to the fluoroscopy machine.
--- NOTE | 2021-07-07 09:11 | FL ---
Fluoroscopy History: LARGE BURSA INJ dr. camacho right greater troch ster inj fl time of 16 secs
[2021-07-07 09:23] VITALS: BP 160/73; PULSE 61
== END 2021-07-07 09:38 | disposition home or self-care (01) ==
LOC: ORPAIN 08:12
PROVIDERS: ATTEND Anesthesiology
DX: M70.61 Trochanteric bursitis, right hip (principal); E11.9 Type 2 diabetes mellitus without complications; Z91.041 Radiographic dye allergy status; Z91.048 Other nonmedicinal substance allergy status; Z79.82 Long term (current) use of aspirin
CPT/HCPCS: 20610; 77002; J3301; J2795